=== PATIENT | female | born 1935 | race Caucasian/White ===

== ENCOUNTER 2016-11-02 08:19 | Day surgery (SDC) | payer BC ==
[2016-10-31 14:28] LABS: BASOPHILS 0.1 %; BASOPHILS ABSOLUTE 0.01 10/3/uL (0.0-0.16); EOSINOPHILS 4.2 %; EOSINOPHILS ABSOLUTE 0.29 10/3/uL (0.0-0.53); HEMATOCRIT 36.8 % (36.0-48.0); HEMOGLOBIN 12.2 g/dL (12.0-16.0); IMMATURE GRANULOCYTES 0.1 %; IMMATURE GRANULOCYTES ABSOLUTE 0.01 10/3/uL (0.0-0.11); LYMPHOCYTES ABSOLUTE 2.37 10/3/uL (0.67-4.30); MEAN CORPUS HGB CONC 33.2 g/dL (32.0-36.0); MEAN CORPUSCULAR HEMOGLOB 30.3 pg (26.0-34.0); MEAN CORPUSCULAR VOLUME 91.5 fL (80-100); MEAN PLATELET VOLUME 9.3 fL (9.2-13.0); MONOCYTES 8.3 %; MONOCYTES ABSOLUTE 0.58 10/3/uL (0.21-1.20); NEUTROPHILS 53.3 %; NEUTROPHILS ABSOLUTE 3.72 10/3/uL (2.02-8.40); PLATELET COUNT 224 10/3/uL (150-400); RED CELL COUNT 4.02 10/6/uL (4.0-5.6)
[2016-10-31 14:29] LABS: MANUAL DIFF NO %
[2016-10-31 14:44] LABS: ALBUMIN 3.7 G/DL (3.5-5.0); ALKALINE PHOSPHATASE 63 U/L (45-117); CALCIUM, SERUM 8.9 MG/DL (8.5-10.4); CHLORIDE, SERUM 106 MMOL/L (96-112); CO2 (CARBON DIOXIDE) 28 MMOL/L (24-34); CREATININE 0.78 MG/DL (0.55-1.02); GFR AFRICAN AMERICAN 81 ML/MIN (>=60); GFR NON AFRICAN AMERICAN 70 ML/MIN (>=60); GLOBULIN 3.7 G/DL (2.5-4.1); GLUCOSE, SERUM 86 MG/DL (60-99); POTASSIUM, SERUM 4.2 MMOL/L (3.5-5.3); SGOT(AST) 11 U/L (5-40); SGPT(ALT) 12 U/L (5-65); SODIUM, SERUM 143 MMOL/L (135-148); TOTAL BILIRUBIN 0.3 MG/DL (0-1.2); TOTAL PROTEIN 7.4 G/DL (6.0-8.5)
[2016-10-31 14:51] LABS: BUN (BLOOD UREA NITROGEN) 22 MG/DL (6-23)
--- NOTE | ~2016-11-02 | PREOPHP ---
PreOp History and Physical [address] [place]. [address] NAME: VANDA ALBERTS : 31 STATUS : [facility]#: [id number] AGE: 81 ADM/REG DATE : 11/02/16 MR#: [id number] REPORT SERV DATE: 11/03/16 DICTATED BY: KALI JAIN III DATE: 10/08/16 REPORT STATUS : Draft TRANSCRIBED BY: MARYLIN DATE: 10/08/16 HISTORY OF PRESENT ILLNESS: This 81-year-old female comes to the operating room for resection of a mass over her posterior right upper back. The patient complains of a large mass over her right posterior shoulder or upper back. This has been present for several years. This recently has been increasing in size. The patient comes to the operating room now for resection of this mass for both diagnostic and therapeutic reasons. PAST MEDICAL HISTORY: 1. History of right breast cancer, T1 N0 M0, status post-surgical treatment in 2008 with no evidence for recurrence. 2. Hypertension. 3. Hyperlipidemia. 4. Osteoporosis. 5. Gastroesophageal reflux disease. ALLERGIES: NONE. PAST SURGICAL HISTORY: Includes right mastectomy and removal of skin cancers. MEDICATIONS: Diltiazem, omeprazole, pravastatin, Caltrate, aspirin. FAMILY HISTORY: Positive for heart disease and diabetes. SOCIAL HISTORY: The patient has a previous history of tobacco use. She has no history of alcohol use. REVIEW OF SYSTEMS: The patient's 14-point review of systems otherwise unremarkable except for back pain. PHYSICAL EXAMINATION: GENERAL: This is a female, in no acute distress. She is alert and oriented x3. VITAL SIGNS: Blood pressure 117/66, temperature 97.4, and pulse 77. HEENT: Unremarkable. LUNGS: Clear. HEART: Normal. ABDOMEN: Soft, nontender. EXTREMITIES: Over the right upper back or right shoulder area, there is a large 6 cm soft tissue mass over the posterior right shoulder. This is soft, discrete, mobile and nontender. NEUROLOGIC: Cranial nerves 2 through 12 are normal. ASSESSMENT: 1. An 81-year-old female with enlarging symptomatic soft tissue mass over the right posterior shoulder. 2. Hypertension. 3. Hyperlipidemia. 4. Remote history of right breast cancer, with no evidence for recurrent disease after PreOp History and Physical [address] [address] NAME: VANDA ALBERTS : 31 STATUS : [facility]#: [id number] AGE: 81 ADM/REG DATE : 11/02/16 MR#: [id number] REPORT SERV DATE: 11/03/16 DICTATED BY: KALI JAIN III DATE: 10/08/16 REPORT STATUS : Draft TRANSCRIBED BY: MODL DATE: 10/08/16 mastectomy. PLAN: The patient comes to the operating room now for resection of this right breast mass. This procedure, the risks, benefits, and alternatives, including not limited to the risk for bleeding, infection, pain, swelling, scarring, deformity of the area, seroma formation, hematoma formation, nerve injury, chronic paresthesias, pain, numbness, neuralgia or neuroma, spinal or accessory nerve injury with muscle weakness or paralysis of muscles of upper back or shoulder, and unforeseen complications including deep venous thrombosis, pulmonary embolus, myocardial infarction, stroke, pneumonia, and , have been explained to the patient prior to surgery. Her questions have been answered. She understands the risks and agrees to surgery as planned. RHChristoph/MARYLIN Kali Jain III, M.D. / [id number]
--- NOTE | ~2016-11-02 | OP ---
Record Of Operation [facility] [address] [place]. [address] NAME: VANDA ALBERTS : 31 STATUS : [facility]#: [id number] AGE: 81 ADM/REG DATE : 11/02/16 MR#: [id number] REPORT SERV DATE: 11/03/16 DICTATED BY: KALI MUKHERJEE III DATE: 11/03/16 REPORT STATUS : Draft TRANSCRIBED BY: MARYLIN DATE: 11/03/16 DATE OF PROCEDURE: 11/02/2016 PREOPERATIVE DIAGNOSIS: Enlarging symptomatic soft tissue neoplasm over the right posterior shoulder, possible malignancy. POSTOPERATIVE DIAGNOSIS: Enlarging symptomatic soft tissue neoplasm over the right posterior shoulder, possible malignancy. PROCEDURE: Wide local resection of large neoplasm of right posterior shoulder or upper back. ANESTHESIA: General with intubation. COMPLICATIONS: None. ESTIMATED BLOOD LOSS: Less than 5 mL. SPECIMENS: Mass from right posterior shoulder. DRAINS: Seun-Seymour in subcutaneous tissue. LAP AND SPONGE COUNT: Correct x3. BRIEF HISTORY: This 81-year-old female presented with an enlarging symptomatic large soft tissue neoplasm located over the right posterior shoulder and extending to the upper back. It was felt that wide local resection of this malignancy was indicated. This procedure, the risks, benefits, and alternatives, including but not limited to the risk for bleeding, infection, pain, swelling, scarring, deformity to the area, seroma formation, hematoma formation, nerve injury, chronic paresthesias, pain, numbness, neuralgia or neuroma of the involved extremity, upper back or shoulder, nerve injuries, muscle weakness or paralysis in muscles of upper back or shoulder, or arm and unforeseen complications including deep venous thrombosis, pulmonary embolus, myocardial infarction, stroke, pneumonia, and , were fully explained to the patient prior to surgery. Her questions were answered. She understood the risks and agreed to surgery as planned. PROCEDURE IN DETAIL: After being appropriately identified and after discussing risks of surgery with her again in the preoperative area, and after identifying the mass with her in the preoperative area, the patient was taken to the operating room and placed in supine position on a stretcher adjacent to the operating room table. General anesthesia was administered. She was intubated without difficulty. She was then carefully rolled into the prone position on the operating room table. Appropriate pads were carefully placed beneath her extremities and torso. The back and shoulder and upper arm were prepped and draped sterilely in the usual fashion. After an appropriate "time-out" per [employer] standards, a vertical incision was made directly over the mass over the right posterior shoulder. The incision was continued through the subcutaneous tissue. A well-defined, large well encapsulated mass was identified. This mass was completely resected. The mass extended Record Of Operation [address] [place]. [address] NAME: VANDA ALBERTS : 31 STATUS : [facility]#: [id number] AGE: 81 ADM/REG DATE : 11/02/16 MR#: [id number] REPORT SERV DATE: 11/03/16 DICTATED BY: KALI MUKHERJEE III DATE: 11/03/16 REPORT STATUS : Draft TRANSCRIBED BY: MARYLIN DATE: 11/03/16 down to the fascia. At no point were any neurovascular structures encountered or injured. The mass was intact and completely resected. It was some 8-9 cm in length. The area was irrigated copiously with saline. Hemostasis was assured. A Seun-Seymour drain was brought through a separate stab wound and placed in the subcutaneous tissue. The subcutaneous tissue was closed with a running 3-0 chromic suture. The skin was closed with running subcuticular 4-0 Monocryl stitch. The incision was injected with 0.5% Marcaine. Dermabond was applied. Anesthesia was reversed, and the patient was taken to the recovery room in stable condition. She tolerated the procedure well. Her family was informed of the results of the surgery. The patient was discharged when stable and comfortable. Her family was advised that she should not drive while the drain was in place, and she should keep wound clean and dry until the drain was removed and that she should resume her usual medications. The patient and family were instructed on the care of the DANNI drain. She was asked to return in one week for followup or sooner if any fever, chills, wound drainage, or other problems prior to that time. She was given a prescription for Percocet 7.5 one t.i.d., #12, as needed for pain, which she was advised not to use while driving. VIVIAN/MARYLIN Kali Mukherjee III, M.D. / [id number] CC: Rubina Ott III, M.D.
[~2016-11-02 08:19] MED LIST: ARIMIDEX1 PO; ASAB PO; BONIVA150 MG PO; CALTRA600D PO; CARDCD180 PO; CARTIA XT240 MG/24 PO; ICAPS MV PO; NITROSTAT0.4 MG SL; PRAVACHOL40 MG PO; PRILOSEC40 MG PO
[2017-01-27] MEDS ORDERED: NITROSTAT0.4 MG SL (09:04)
[2017-01-27] MEDS ORDERED: CARDCD240 PO (09:05)
[2017-01-27] MEDS ORDERED: CRANBERRY500 MG PO (09:05)
[2017-01-27] MEDS ORDERED: ICAPS AREDS SO1 EACH PO (09:05)
== END 2016-11-02 15:48 | disposition home or self-care (01) ==
LOC: SDC 08:19
PROVIDERS: Surgery
PROC: 0JBD0ZZ Excision of Right Upper Arm Subcutaneous Tissue and Fascia, Open Approach (ICD-10-PCS; principal; 2016-11-02 09:45)
DX: D17.21 Benign lipomatous neoplasm of skin and subcutaneous tissue of right arm (principal); I10 Essential (primary) hypertension; E78.5 Hyperlipidemia, unspecified; M81.0 Age-related osteoporosis without current pathological fracture; K21.9 Gastro-esophageal reflux disease without esophagitis; I25.10 Atherosclerotic heart disease of native coronary artery without angina pectoris; I45.10 Unspecified right bundle-branch block; E78.00 Pure hypercholesterolemia, unspecified; Z85.3 Personal history of malignant neoplasm of breast; Z90.11 Acquired absence of right breast and nipple; Z95.5 Presence of coronary angioplasty implant and graft
CPT/HCPCS: 71020; 80053; 85025; 88304; 93005; J0690; J2370; J2710; J3010